=== PATIENT | male | born 1960 | race Caucasian/White ===

== ENCOUNTER → 2016-10-27 | Outpatient (CLI) | payer OTHER ==
--- NOTE | 2016-10-27 08:13 | CT ---
EXAMINATION TYPE: CT pelvis w con DATE OF EXAM: 10/27/2016 7:50 AM REFERENCE: Previous study dated 08/29/2016 HISTORY: R10.2 L pelvic pain HISTORY: LLQ pain REFERENCE: NONE CT DLP: 385.6 mGy Automated exposure control for dose reduction was used. TECHNIQUE: Helical acquisition through the abdomen and pelvis was obtained following the oral ingesti on of with Oral Contrast and following intravenous administration of 100 mL of Omnipaque 300. The jarocho a was reformatted in axial, coronal and sagittal projections. FINDINGS: There is an incompletely visualized 3.7 x 4.1 x 4.2 cm mass within the mesentery on the ri ght. This was less well visualized on the previous study. This may relate to the bowel. I could not e xclude a pancreatic origin. Visualized portions of the abdominal viscera are unremarkable. There is no free air or free fluid. There is no significant diverticular change. The appendix is normal. There is a small amount of soft tissue fullness in the left inguinal region. There is a small hydroce le present. There is a direct inguinal hernia on the right containing fat only. There are degenerative changes in the hips, worse on the left than the right. There is facet arthropa thy in the lower lumbar spine. IMPRESSION: 1. MESENTERIC MASS ON THE RIGHT. THIS IS INCOMPLETELY VISUALIZED. A CT SCAN OF THE ABDOMEN AND PELVIS WITH ORAL AND INTRAVENOUS CONTRAST IS SUGGESTED. 2. MILD SOFT TISSUE FULLNESS IN THE LEFT INGUINAL REGION WITH A SMALL LEFT-SIDED HYDROCELE. 3. DIRECT RIGHT-SIDED INGUINAL HERNIA. 4. DEGENERATIVE CHANGE WITHIN THE HIPS AND SPINE. A [place] message has been communicated to Glen Shepard MD via the [email or web address] system on 10/27/2016 8:10 AM, Message ID [id number].
== END | disposition home or self-care (01) ==
LOC: RADCTMAIN 07:12
PROVIDERS: ATTEND Surgery
DX: K40.90 Unilateral inguinal hernia, without obstruction or gangrene, not specified as recurrent (principal); K66.8 Other specified disorders of peritoneum; N43.3 Hydrocele, unspecified
CPT/HCPCS: 72193; Q9967

== ENCOUNTER → 2016-11-03 | Outpatient (CLI) | payer OTHER ==
--- NOTE | 2016-11-03 15:24 | XR ---
Left hip HISTORY: Arthritis left hip 2 views of the left hip. There is joint space loss, remodeling, marginal spurring with subchondral sclerosis. Alignment is zahraa ntained. Small ossific density may represent a loose body, synovial osteochondromatosis. IMPRESSION: Osteoarthritis.
== END | disposition home or self-care (01) ==
LOC: RADXRMAIN 13:23
PROVIDERS: ATTEND Internal Medicine
DX: M16.12 Unilateral primary osteoarthritis, left hip (principal)
CPT/HCPCS: 73502

== ENCOUNTER → 2016-11-15 | Outpatient (CLI) | payer OTHER ==
[2016-11-15 10:31] LABS: EKG EKG PERFORMED
[2016-11-15 10:57] LABS: Basophils % (A) 1 %; CH 30.2; CHCM 35.2; Eosinophils # (A) 0.1 k/uL (0-0.7); Eosinophils % (A) 2 %; HCT 47.4 % (39.0-53.0); HDW 2.95; HGB 15.8 gm/dL (13.0-17.5); Luc # (Auto) 0.12; Luc % (Auto) 2; Lymphocytes # (A) 1.8 k/uL (1.0-4.8); Lymphocytes % (A) 29 %; MCH 28.8 pg (25.0-35.0); MCHC 33.4 g/dL (31.0-37.0); MCV 86.3 fL (80.0-100.0); Mean Platelet Volume 7.4; Monocytes # (A) 0.3 k/uL (0-1.0); Monocytes % (A) 5 %; Neutrophils # (A) 3.8 k/uL (1.3-7.7); Neutrophils % (A) 62 %; RDW 13.1 % (11.5-15.5); WBC 6.2 k/uL (3.8-10.6); WBC (Perox) 6.26
[2016-11-15 11:00] LABS: Partial Thromboplastin Time 25.3 sec (22.0-30.0); Prothrombin Time 10.2 sec (9.0-12.0)
[2016-11-15 11:06] LABS: Anion Gap 13 mmol/L; Blood Urea Nitrogen 17 mg/dL (9-20); Calcium 9.7 mg/dL (8.4-10.2); Carbon Dioxide 23 mmol/L (22-30); Chloride 107 mmol/L (98-107); Glucose 94 mg/dL (74-99); Non-African American GFR(MDRD) >60 (>60 ml/min/1.73 sqM); Potassium 4.3 mmol/L (3.5-5.1); Sodium 143 mmol/L (137-145)
[2016-11-15 12:54] LABS: Appearance,Urine Clear (Clear); Bilirubin,Urine Negative (Negative); Glucose,Urine (UA) Negative (Negative); Ketones,Urine Negative (Negative); Leukocyte Esterase,Urine Negative (Negative); Nitrite,Urine Negative (Negative); PH, Urine 5.5 (5.0-8.0); Protein,Urine Negative (Negative); Specific Gravity,Urine 1.004 (1.001-1.035); UA Billing (MACRO vs. MICRO) CHEM; Urobilinogen,Urine <2.0 mg/dL (<2.0)
== END | disposition home or self-care (01) ==
LOC: LABWHC1 10:14
PROVIDERS: ATTEND Orthopaedic Surgery
DX: Z01.812 Encounter for preprocedural laboratory examination (principal); D61.3 Idiopathic aplastic anemia; N39.0 Urinary tract infection, site not specified; Z79.01 Long term (current) use of anticoagulants; I49.49 Other premature depolarization
CPT/HCPCS: 36415; 80048; 81003; 85025; 85610; 85730; 87086; 93005

== ENCOUNTER 2017-11-12 10:08 | Emergency (ER) | payer OTHER ==
--- NOTE | 2017-11-12 10:55 | ED ---
General Adult HPI - General Chief complaint: Extremity Problem,Nontraumatic Stated complaint: Numbness on right side Time Seen by Provider: 11/12/17 10:35 Source: patient, RN notes reviewed Mode of arrival: ambulatory Limitations: no limitations - History of Present Illness Initial comments: 57-year-old male with past medical history of traumatic brain injury and memory impairment presents for evaluation of headache, and right upper and lower extremity weakness. Headache isn't present for approximately one month, weakness has been progressive over this time. Patient is right-handed. He has had numbness in his right arm and right lateral leg as well as progressive weakness. Decrease in alpaca farmer strength on the right. Patient denies any symptoms on the left side of his body. He denies any low back pain. Denies saddle anesthesia. Denies any urinary incontinence or issues with his bowels. Denies fever or chills. Denies chest pain or shortness of breath. Does report some mild right-sided neck pain. No injury. No acute vision changes. - Related Data Home Medications Medication Instructions Recorded Confirmed Dextroamphetamine/Amphetamine 20 mg PO DAILY 08/09/15 11/12/17 [Adderall] Donepezil [Aricept] 10 mg PO HS 08/09/15 11/12/17 Zolpidem [Ambien] 10 mg PO HS PRN 08/09/15 11/12/17 Allergies Allergy/AdvReac Type Severity Reaction Status Date / Time No Known Allergies Allergy Verified 11/12/17 10:24 Review of Systems ROS Statement: Those systems with pertinent positive or pertinent negative responses have been documented in the HPI. ROS Other: All systems not noted in ROS Statement are negative. Past Medical History Past Medical History: Memory Impairment History of Any Multi-Drug Resistant Organisms: None Reported Past Surgical History: Tonsillectomy Past Anesthesia/Blood Transfusion Reactions: No Reported Reaction Past Psychological History: ADD/ADHD Smoking Status: Never smoker Past Alcohol Use History: None Reported Past Drug Use History: None Reported - Past Family History Mother Family Medical History: No Reported History General Exam Limitations: no limitations General appearance: alert, in no apparent distress Head exam: Present: atraumatic, normocephalic Eye exam: Present: normal appearance, PERRL, EOMI ENT exam: Present: normal exam Neck exam: Present: normal inspection, tenderness (Minimal right paraspinal tenderness), full ROM. Absent: meningismus Respiratory exam: Present: normal lung sounds bilaterally. Absent: respiratory distress, wheezes Cardiovascular Exam: Present: regular rate, normal rhythm GI/Abdominal exam: Present: soft. Absent: distended, tenderness, guarding Extremities exam: Present: normal inspection, normal capillary refill. Absent: pedal edema Back exam: Present: normal inspection, full ROM. Absent: tenderness, paraspinal tenderness, vertebral tenderness Neurological exam: Present: alert, oriented X3, CN II-XII intact, motor sensory deficit (Patient has weakness in the right upper extremity, drift and decreased alpaca farmer strength, 4 out of 5 weakness in the right lower extremities. Patient does report some sensory deficit in both right upper and right lower extremities.) Skin exam: Present: warm, dry, intact. Absent: cyanosis, diaphoretic Course Vital Signs 11/12/17 11/12/17 10:10 12:15 Temperature 98.4 F Pulse Rate 68 56 L Respiratory 20 18 Rate Blood Pressure 127/80 126/82 O2 Sat by Pulse 96 98 Oximetry EKG Findings - EKG Comments: EKG Findings:: Ventricular rate of 55, WA interval 204, castration 114, QTC 409 , there is incomplete left bundle-branch block and sinus bradycardia. Medical Decision Making - Medical Decision Making 57-year-old male with a one-month history of weakness in the right upper and right lower extremity with some numbness. CT abdomen is obtained, there was chronic ischemic changes with no acute infarction, no mass. This is a limited study as it is without contrast. CT cervical spine negative for fracture subluxation. Chest x-ray shows no acute intrathoracic findings. Laboratory studies are within normal limits. EKG does show an incomplet left bundle which is new compared to old however is not significantly changed from prior EKG. No signs of acute ischemia. No chest pain. Case is discussed with the patient's neurologist Dr. Remy, he does recommend the patient be admitted for further evaluation including MRI. I discussed this with the patient, he does not wish to be admitted. He prefers to be discharged and will follow up as an outpatient. He is informed that his neurologist would prefer that he stay for additional workup and still wishes to be discharged. He will return with any worsening or changing symptoms. He is leaving AGAINST MEDICAL ADVICE and against the advice of his neurologist however his symptoms have been present for several weeks and this does reduce the risk of an acute change. - Lab Data Result diagrams: 11/12/17 11:00 11/12/17 11:00 Lab Results 11/12/17 11/12/17 11/12/17 Range/Units 11:00 11:00 11:00 WBC 4.8 (3.8-10.6) k/uL RBC 5.20 (4.30-5.90) m/uL Hgb 15.5 (13.0-17.5) gm/dL Hct 45.2 (39.0-53.0) % MCV 87.0 (80.0-100.0) fL MCH 29.8 (25.0-35.0) pg MCHC 34.2 (31.0-37.0) g/dL RDW 13.3 (11.5-15.5) % Plt Count 241 (150-450) k/uL Neutrophils % 56 % Lymphocytes % 30 % Monocytes % 7 % Eosinophils % 3 % Basophils % 1 % Neutrophils # 2.6 (1.3-7.7) k/uL Lymphocytes # 1.5 (1.0-4.8) k/uL Monocytes # 0.3 (0-1.0) k/uL Eosinophils # 0.2 (0-0.7) k/uL Basophils # 0.1 (0-0.2) k/uL PT 10.1 (9.0-12.0) sec INR 1.0 (<1.2) APTT 24.3 (22.0-30.0) sec Sodium 140 (137-145) mmol/L Potassium 4.6 (3.5-5.1) mmol/L Chloride 108 H (98-107) mmol/L Carbon Dioxide 22 (22-30) mmol/L Anion Gap 10 mmol/L BUN 16 (9-20) mg/dL Creatinine 1.04 (0.66-1.25) mg/dL Est GFR (MDRD) Af Amer >60 (>60 ml/min/1.73 sqM) Est GFR (MDRD) Non-Af >60 (>60 ml/min/1.73 sqM) Glucose 101 H (74-99) mg/dL Calcium 10.0 (8.4-10.2) mg/dL Total Bilirubin 0.6 (0.2-1.3) mg/dL AST 25 (17-59) U/L ALT 25 (21-72) U/L Alkaline Phosphatase 61 (38-126) U/L Troponin I (0.000-0.034) ng/mL Total Protein 7.2 (6.3-8.2) g/dL Albumin 4.3 (3.5-5.0) g/dL 11/12/17 Range/Units 11:00 WBC (3.8-10.6) k/uL RBC (4.30-5.90) m/uL Hgb (13.0-17.5) gm/dL Hct (39.0-53.0) % MCV (80.0-100.0) fL MCH (25.0-35.0) pg MCHC (31.0-37.0) g/dL RDW (11.5-15.5) % Plt Count (150-450) k/uL Neutrophils % % Lymphocytes % % Monocytes % % Eosinophils % % Basophils % % Neutrophils # (1.3-7.7) k/uL Lymphocytes # (1.0-4.8) k/uL Monocytes # (0-1.0) k/uL Eosinophils # (0-0.7) k/uL Basophils # (0-0.2) k/uL PT (9.0-12.0) sec INR (<1.2) APTT (22.0-30.0) sec Sodium (137-145) mmol/L Potassium (3.5-5.1) mmol/L Chloride (98-107) mmol/L Carbon Dioxide (22-30) mmol/L Anion Gap mmol/L BUN (9-20) mg/dL Creatinine (0.66-1.25) mg/dL Est GFR (MDRD) Af Amer (>60 ml/min/1.73 sqM) Est GFR (MDRD) Non-Af (>60 ml/min/1.73 sqM) Glucose (74-99) mg/dL Calcium (8.4-10.2) mg/dL Total Bilirubin (0.2-1.3) mg/dL AST (17-59) U/L ALT (21-72) U/L Alkaline Phosphatase (38-126) U/L Troponin I <0.012 (0.000-0.034) ng/mL Total Protein (6.3-8.2) g/dL Albumin (3.5-5.0) g/dL Disposition Clinical Impression: Weakness of right upper extremity, Weakness of right lower extremity Disposition: HOME SELF-CARE Condition: Fair Instructions: Weakness (ED) Referrals: Mor Day MD [Primary Care Provider] - 1-2 days Romero Remy MD [STAFF PHYSICIAN] - 1-2 days Time of Disposition: 13:22
[2017-11-12 11:16] LABS: Basophils # (A) 0.1 k/uL (0-0.2); Basophils % (A) 1 %; Eosinophils # (A) 0.2 k/uL (0-0.7); Eosinophils % (A) 3 %; HCT 45.2 % (39.0-53.0); HGB 15.5 gm/dL (13.0-17.5); Lymphocytes # (A) 1.5 k/uL (1.0-4.8); Lymphocytes % (A) 30 %; MCH 29.8 pg (25.0-35.0); MCHC 34.2 g/dL (31.0-37.0); Mean Platelet Volume 6.8; Monocytes # (A) 0.3 k/uL (0-1.0); Monocytes % (A) 7 %; Neutrophils # (A) 2.6 k/uL (1.3-7.7); Neutrophils % (A) 56 %; Platelet Count 241 k/uL (150-450); RDW 13.3 % (11.5-15.5); WBC 4.8 k/uL (3.8-10.6)
[2017-11-12 11:25] LABS: ALT 25 U/L (21-72); AST 25 U/L (17-59); Albumin 4.3 g/dL (3.5-5.0); Alkaline Phosphatase 61 U/L (38-126); Anion Gap 10 mmol/L; Blood Urea Nitrogen 16 mg/dL (9-20); Carbon Dioxide 22 mmol/L (22-30); Chloride 108 mmol/L (98-107); Glucose 101 mg/dL (74-99); Potassium 4.6 mmol/L (3.5-5.1); Sodium 140 mmol/L (137-145); Total Bilirubin 0.6 mg/dL (0.2-1.3); Total Protein 7.2 g/dL (6.3-8.2)
[2017-11-12 11:33] LABS: Partial Thromboplastin Time 24.3 sec (22.0-30.0); Prothrombin Time 10.1 sec (9.0-12.0)
--- NOTE | 2017-11-12 11:35 | CT ---
EXAMINATION TYPE: CT brain jeff paredes DATE OF EXAM: 11/12/2017 COMPARISON: NONE HISTORY: Rt sided numbness, BURR, neck pain CT DLP: [address] of the brain was performed. The ventricles, basal cisterns and sulci overlying the cerebral convexities demonstrate mild enlargem ent. There is no evidence for intracranial hemorrhage or sulcal effacement. There is decreased attenuatio n about the periventricular white matter and deep white matter of both cerebral hemispheres, compatib le with chronic small vessel ischemia. No mass effects are seen. Chronic paranasal sinusitis. If symptoms persist consider MRI. Osseous calvarium is intact. IMPRESSION: 1. Age related atrophic and chronic small vessel ischemic change without acute intracranial process seen at this time. CT Cervical Spine: Unenhanced CT of the cervical spine was performed with bone and soft tissue window settings submitted . Coronal and sagittal reconstruction is obtained. There is normal alignment and prevertebral soft tissues. No evidence for acute cervical fracture . Scattered degenerative disc disease and spondylosis. Biapical scarring. IMPRESSION: 1. No evidence for acute fracture or subluxation of the cervical spine.
--- NOTE | 2017-11-12 11:35 | XR ---
EXAMINATION TYPE: XR chest 2V DATE OF EXAM: 11/12/2017 COMPARISON: Chest x-ray December 30, 2008 HISTORY: Altered mental status and weakness. Right-sided neck pain TECHNIQUE: Frontal and lateral views of the chest are obtained. FINDINGS: Low lung volumes are now present. There is no focal air space opacity, pleural effusion, or pneumothorax seen. The cardiac silhouette size is mildly enlarged. The osseous structures are int act. IMPRESSION: Low lung volumes and mild cardiomegaly without acute pulmonary process.
[2017-11-12 12:16] VITALS: RESP 18
[2017-11-12 13:22] VITALS: BP 132/86; PULSE 61; TEMP 96.8
== END 2017-11-12 13:30 | disposition home or self-care (01) ==
LOC: EC 10:08
DX: R53.1 Weakness (principal); R51 Headache; R20.0 Anesthesia of skin; F90.9 Attention-deficit hyperactivity disorder, unspecified type; Z79.899 Other long term (current) drug therapy; Z53.29 Procedure and treatment not carried out because of patient's decision for other reasons
CPT/HCPCS: 36415; 70450; 71046; 72125; 80053; 84484; 85025; 85610; 85730; 93005; 99285